=== PATIENT | female | born 1950 | race Hispanic/Latino ===

== ENCOUNTER 2020-12-07 13:00 | Inpatient (IN) | payer MEDICARE ==
[~2020-12-07] VITALS: Ht 165.1 cm; Wt 92.0 kg
[2020-12-07 12:41] LABS: BASOPHILS % (AUTO) 1.2 % (0.0-5.0); EOSINOPHILS % (AUTO) 3.2 % (0.0-8.0); HEMATOCRIT 42.7 % (36-48); LYMPHOCYTES % (AUTO) 33.4 % (21.0-51.0); MEAN CORPUSCULAR HEMOGLOBIN 28.7 pg (27.0-33.0); MEAN CORPUSCULAR HGB CONC 32.6 g/dL (32.0-36.0); PLATELET COUNT (AUTO) 242 K/uL (130-400); RED BLOOD CELL COUNT(AUTO) 4.85 MIL/uL (4.00-5.50); RED CELL DISTRIBUTION WIDTH 13.1 % (11.0-15.5)
[2020-12-07 12:44] LABS: APPEARANCE,URINE Clear (CLEAR); BILIRUBIN,URINE Negative (NEGATIVE); COLOR,URINE Yellow (YELLOW); GLUCOSE, URINE (UA) Negative (NEGATIVE); KETONES,URINE Negative (NEGATIVE); LEUKOCYTE ESTERASE ,URINE Small (NEGATIVE); NITRATE,URINE Negative (NEGATIVE); OCCULT BLOOD,URINE Negative (NEGATIVE); PH,URINE 7.5 (5.0-8.0); PROTEIN,URINE Negative (NEGATIVE); UROBILINOGEN,URINE 0.2 mg/dL (0.2-1.0)
[2020-12-07 12:45] LABS: BACTERIA,URINE Rare /HPF (None Seen); RBC,URINE 0-1 /HPF (0-1); SQUAMOUS EPITHELIAL CELL,UR Rare /HPF (0-2); WBC,URINE 0-1 /HPF (0-1)
[2020-12-07 13:10] LABS: CREATININE 0.7 mg/dL (0.5-1.5); INR 1.07 (0.85-1.15); POTASSIUM 4.6 mmol/L (3.5-5.1); PROTHROMBIN TIME 11.6 SEC (9.6-11.6)
[2020-12-11 10:44] VITALS: BP 186/77
[2020-12-11] MEDS ORDERED: OMEP20CA12 PO (11:08)
[2020-12-11] MEDS ORDERED: METF-444 PO (11:08)
[2020-12-11] MEDS ORDERED: ERGO2000 PO (11:08)
[2020-12-11] MEDS ORDERED: LEVO100T6 PO (11:08)
[2020-12-11] MEDS ORDERED: TRAM50TA4 PO (11:08)
[2020-12-12] VITALS (22 sets, daily range): BP systolic 129–182; BP diastolic 69–101
[2020-12-12] MEDS ORDERED: DEXAMETHASONE SOD PHOSPHATE 10MG/ML 1ML VIAL ONE (07:46)
[2020-12-12] MEDS ORDERED: NEOSTIGMINE 5MG/5ML SYR IV ONE (07:46)
[2020-12-12] MEDS ORDERED: ONDANSETRON HCL 4 MG/2 ML VIAL ONE (07:46)
[2020-12-12] MEDS ORDERED: PROPOFOL 10 MG/ML 20ML VIAL IV ONE (07:46)
[2020-12-12] MEDS ORDERED: GLYCOPYRROLATE 1 MG/5 ML SYRINGE ONE (07:46)
[2020-12-12] MEDS ORDERED: LIDOCAINE PF 2% 5ML ABBOJECT ONE ×2 (07:46→12:13)
[2020-12-12] MEDS ORDERED: SUCCINYLCHOLINE CHLORIDE 20 MG/ML 10 ML VIAL ONE (07:46)
[2020-12-12] MEDS ORDERED: ROCURONIUM 10MG/1ML SYR 10 MG/ML ML ONE (07:47)
[2020-12-12] MEDS ORDERED: MIDAZOLAM HCL 1 MG/ML 2ML VIAL ONE (07:47)
[2020-12-12] MEDS ORDERED: FENTANYL CITRATE PF 50 MCG/1 ML 2ML VIAL ONE ×2 (07:47→12:03)
[2020-12-12] MEDS ORDERED: MEPERIDINE-PF 25 MG/ML SYG ONE ×3 (07:50→12:59)
[2020-12-12] MEDS ORDERED: ROPIVACAINE 0.5% 5MG/ML 30ML IJ ONE (07:59)
[2020-12-12] MEDS ORDERED: SODIUM CHLORIDE 0.9% 1000ML 1,000 ML IV ONE (08:05)
[2020-12-12] MEDS ORDERED: ACETAMINOPHEN EXTRA STRENGTH 500 MG TABLET ONE (08:24)
[2020-12-12] MEDS ORDERED: CELECOXIB 200 MG CAP ONE (08:25)
[2020-12-12] MEDS ORDERED: KETOROLAC TROMETHAMINE 15MG/ML ONE (08:25)
[2020-12-12] MEDS: CEFAZOLIN SODIUM 1 GM VIAL IVP SCH ×3 (08:27→18:49)
[2020-12-12] MEDS ORDERED: CEFAZOLIN SODIUM 1 GM VIAL ONE (08:30)
[2020-12-12] MEDS ORDERED: TRANEXAMIC ACID 1000MG/10ML ONE (08:30)
[2020-12-12] MEDS ORDERED: PHENYLEPHRINE HCL 10 MG/ML 1ML VIAL IV ONE (10:01)
[2020-12-12] MEDS ORDERED: EPHEDRINE SULFATE 50 MG/ML AMPULE ONE (10:25)
[2020-12-12] MEDS ORDERED: CEFAZOLIN SODIUM 1 GM VIAL IRRIG ONE (10:35)
[2020-12-12] MEDS ORDERED: KETOROLAC TROMETHAMINE 30MG/ML ONE (12:03)
[2020-12-12] MEDS ORDERED: CALCIUM CARBONATE 500 MG TABLET PO PRN (12:30)
[2020-12-12] MEDS ORDERED: OXYCODONE HCL 5 MG TAB PO PRN (12:30)
[2020-12-12] MEDS ORDERED: POTASSIUM CHLORIDE 20MEQ/100ML 100 ML IV PRN (12:30)
[2020-12-12] MEDS ORDERED: ONDANSETRON HCL 4 MG/2 ML VIAL IVP PRN (12:30)
[2020-12-12] MEDS ORDERED: POTASSIUM CHLORIDE 20 MEQ ERTAB PO PRN (12:30)
[2020-12-12] MEDS ORDERED: DiphenhydrAMINE HCL 50 MG/ML VIAL IVP PRN (12:30)
[2020-12-12] MEDS ORDERED: FERROUS FUMARATE 324 MG TABLET PO PRN (12:30)
[2020-12-12] MEDS ORDERED: POTASSIUM CHLORIDE 10% ELIXIR 20 MEQ/15 ML UDCUP PO PRN (12:30)
[2020-12-12] MEDS ORDERED: LIDOCAINE HCL-MPF 1% 2ML VIAL IV PRN (12:30)
[2020-12-12] MEDS ORDERED: TEMAZEPAM 15 MG CAPSULE PO PRN (12:30)
[2020-12-12] MEDS: ACETAMINOPHEN EXTRA STRENGTH 500 MG TABLET PO SCH ×2 (12:30→19:59)
[2020-12-12] MEDS: KETOROLAC TROMETHAMINE 15MG/ML IV PRN (13:49)
[2020-12-12] MEDS: SODIUM CHLORIDE 0.9% 1000ML 1,000 ML IV SCH ×2 (14:07→22:30)
[2020-12-12] MEDS: OXYCODONE HCL 5 MG TAB PO PRN (16:29)
[2020-12-12] MEDS: INSULIN HUMULIN R 100 UNIT/ML 3ML SQ SCH ×2 (16:30→20:23)
[2020-12-12] MEDS: ASPIRIN 81MG TAB.CHEW PO SCH (19:58)
[2020-12-12] MEDS: CELECOXIB 200 MG CAP PO SCH (19:58)
[2020-12-12] MEDS: PREGABALIN 25 MG CAP PO SCH (19:59)
[2020-12-12] MEDS: FAMOTIDINE 20MG TAB 20 MG TAB PO SCH (20:00)
[2020-12-13] VITALS (7 sets, daily range): BP systolic 116–144; BP diastolic 56–78
[2020-12-13] MEDS: CEFAZOLIN SODIUM 1 GM VIAL IVP SCH (00:54)
[2020-12-13] MEDS: OXYCODONE HCL 5 MG TAB PO PRN ×4 (00:55→17:45)
[2020-12-13] MEDS: ACETAMINOPHEN EXTRA STRENGTH 500 MG TABLET PO SCH ×3 (03:27→20:03)
[2020-12-13 04:48] LABS: HEMATOCRIT 37.3 % (36-48); MEAN CORPUSCULAR HEMOGLOBIN 28.9 pg (27.0-33.0); MEAN CORPUSCULAR HGB CONC 33.2 g/dL (32.0-36.0); MEAN CORPUSCULAR VOLUME 86.9 fL (79-99); RED BLOOD CELL COUNT(AUTO) 4.29 MIL/uL (4.00-5.50); RED CELL DISTRIBUTION WIDTH 13.4 % (11.0-15.5); WHITE BLOOD COUNT (AUTO) 16.4 K/uL (4.8-10.8)
[2020-12-13 05:04] LABS: CREATININE 0.8 mg/dL (0.5-1.5); POTASSIUM 4.6 mmol/L (3.5-5.1)
[2020-12-13] MEDS: LEVOTHYROXINE 100 MCG TABLET PO SCH (05:40)
[2020-12-13] MEDS: INSULIN HUMULIN R 100 UNIT/ML 3ML SQ SCH ×4 (06:11→20:12)
[2020-12-13] MEDS: TRAMADOL HCL 50 MG TABLET PO PRN (07:56)
[2020-12-13] MEDS: SODIUM CHLORIDE 0.9% 1000ML 1,000 ML IV SCH (08:30)
[2020-12-13] MEDS ORDERED: NON-FORMULARY MEDICATION 1 EACH (Omeprazole 20 MG) PO SCH (09:00)
[2020-12-13] MEDS: ASPIRIN 81MG TAB.CHEW PO SCH ×2 (10:33→20:04)
[2020-12-13] MEDS: KETOROLAC TROMETHAMINE 15MG/ML IV PRN (10:35)
[2020-12-13] MEDS: METFORMIN HCL 500 MG TABLET PO SCH (10:37)
[2020-12-13] MEDS: CELECOXIB 200 MG CAP PO SCH ×2 (10:37→20:04)
[2020-12-13] MEDS: PREGABALIN 25 MG CAP PO SCH ×2 (10:37→20:04)
[2020-12-13] MEDS: FAMOTIDINE 20MG TAB 20 MG TAB PO SCH ×2 (10:37→20:04)
[2020-12-13] MEDS: POLYETHYLENE GLYCOL 3350 17 GM POWD.PACK PO SCH (10:38)
[2020-12-13] MEDS: PANTOPRAZOLE SODIUM 40 MG TABLET.DR PO SCH (10:38)
[2020-12-14] MEDS: OXYCODONE HCL 5 MG TAB PO PRN ×3 (00:31→14:47)
[2020-12-14] MEDS: ACETAMINOPHEN EXTRA STRENGTH 500 MG TABLET PO SCH ×2 (04:08→12:22)
[2020-12-14 04:35] VITALS: BP 151/67
[2020-12-14] MEDS: TRAMADOL HCL 50 MG TABLET PO PRN ×3 (04:51→18:03)
[2020-12-14] MEDS: LEVOTHYROXINE 100 MCG TABLET PO SCH (06:07)
[2020-12-14] MEDS: INSULIN HUMULIN R 100 UNIT/ML 3ML SQ SCH ×2 (06:08→11:30)
[2020-12-14 08:38] VITALS: BP 155/71
[2020-12-14] MEDS: METFORMIN HCL 500 MG TABLET PO SCH (09:00)
[2020-12-14] MEDS: CELECOXIB 200 MG CAP PO SCH (09:00)
[2020-12-14] MEDS: ASPIRIN 81MG TAB.CHEW PO SCH (09:00)
[2020-12-14] MEDS: POLYETHYLENE GLYCOL 3350 17 GM POWD.PACK PO SCH (09:00)
[2020-12-14] MEDS: FAMOTIDINE 20MG TAB 20 MG TAB PO SCH (09:00)
[2020-12-14] MEDS: PANTOPRAZOLE SODIUM 40 MG TABLET.DR PO SCH (09:00)
[2020-12-14] MEDS: PREGABALIN 25 MG CAP PO SCH (09:00)
[2020-12-14 13:52] VITALS: BP 146/72
[2020-12-14] MEDS ORDERED: ASPI-1005 PO (17:41)
[2020-12-14] MEDS ORDERED: HYDR-4060 PO (17:41)
[2020-12-14 19:10] VITALS: BP 131/75
[2020-12-15] MEDS ORDERED: BISACODYL 10 MG SUPP.RECT RC PRN (12:30)
[2020-12-19] MEDS ORDERED: ERGOCALCIFEROL (VITAMIN D2) 50,000 UNIT CAPSULE PO SCH (09:00)
[2020-12-19] MEDS ORDERED: ERGOCALCIFEROL 50 MCG PO SCH (09:00)
== END 2020-12-14 20:00 | disposition home health service (06) | DRG 465 ==
LOC: EDSTATUS 13:00 → INTOOBSV 12-12 06:53 → OBSVTOIN 12-12 06:53 → DAHIP 12-12 06:53 → 4AH 12-12 13:41
PROVIDERS: ADMIT Orthopaedic Surgery; ATTEND Orthopaedic Surgery
PROC: 0SPD09Z Removal of Liner from Left Knee Joint, Open Approach (ICD-10-PCS; 2020-12-12)
PROC: 0SUW09Z Supplement Left Knee Joint, Tibial Surface with Liner, Open Approach (ICD-10-PCS; 2020-12-12)
PROC: 0SPD0NZ Removal of Patellofemoral Synthetic Substitute from Left Knee Joint, Open Approach (ICD-10-PCS; principal; 2020-12-12 09:30)
PROC: 0SRD0N9 Replacement of Left Knee Joint with Patellofemoral Synthetic Substitute, Cemented, Open Approach (ICD-10-PCS; 2020-12-12 09:30)
DX: T84.023A Instability of internal left knee prosthesis, initial encounter (principal); Z20.822 Contact with and (suspected) exposure to COVID-19; E03.9 Hypothyroidism, unspecified; G89.4 Chronic pain syndrome; M06.9 Rheumatoid arthritis, unspecified; Z96.652 Presence of left artificial knee joint; Y83.8 Other surgical procedures as the cause of abnormal reaction of the patient, or of later complication, without mention of misadventure at the time of the procedure; Y92.89 Other specified places as the place of occurrence of the external cause
CPT/HCPCS: 36415; 80048; 81001; 82948; 85025; 85027; 85610; 87641; 93005; 97039; G0378; J0330; J0690; J1100; J1885; J2001; J2175; J2250; J2370; J2405; J2704; J2710; J2795; J3010; J3490; J7030; J7120; U0003

== ENCOUNTER 2021-01-05 08:56 | Emergency (ER) | payer MEDICARE ==
[~2021-01-05 08:56] MED LIST: ASPI-1005 PO; ERGO2000 PO; LEVO100T6 PO; METF-444 PO; OMEP20CA12 PO; TRAM50TA4 PO
[2021-01-05] MEDS ORDERED: HYDROCODONE/ACETAMINOPHEN 7.5/325 MG TAB ONE (09:57)
== END 2021-01-05 12:32 | disposition home or self-care (01) ==
LOC: EDH 08:56
DX: B02.29 Other postherpetic nervous system involvement (principal); I10 Essential (primary) hypertension
CPT/HCPCS: 82948